=== PATIENT | male | born 1970 | race Asian ===

== ENCOUNTER → 2017-02-26 | Outpatient (CLI) | payer BC | LOC: COL.RAD 07:24 | DX: N28.1 Cyst of kidney, acquired (principal) ==

== ENCOUNTER → 2018-10-07 | Outpatient (CLI) | payer BC | LOC: COL.RAD 16:23 | DX: M47.812 Spondylosis without myelopathy or radiculopathy, cervical region (principal); M89.311 Hypertrophy of bone, right shoulder ==

== ENCOUNTER 2019-11-29 21:23 | Emergency (ER) | payer BC ==
[~2019-11-29] VITALS: Ht 177.8 cm; Wt 79.5 kg
[2019-11-29 21:30] VITALS: BP 145/82; TEMP 97.7
[2019-11-30] VITALS: PULSE 84
== END 2019-11-30 | disposition home or self-care (01) ==
LOC: COL.ER 21:23
DX: R09.89 Other specified symptoms and signs involving the circulatory and respiratory systems (principal)
CPT/HCPCS: J2270